=== PATIENT | male | born 1960 | race Caucasian/White ===

== ENCOUNTER → 2017-02-08 | Outpatient (CLI) | payer BC ==
[2017-02-08 09:39] LABS: HEMATOCRIT 43.3 % (42-52); MEAN CELL VOLUME 90.2 fL (80-100); MEAN CORPUSCULAR HEMOGLOBIN 31.7 pg (25-34); MEAN CORPUSCULAR HGB CONC 35.1 g/dl (32-36); MEAN PLATELET VOLUME 10.4 fL (7.4-10.4); PLATELET COUNT 238 K/uL (130-400); WHITE BLOOD COUNT 7.33 K/uL (4.8-10.8)
[2017-02-08 09:56] LABS: ALT/SGPT 72 U/L (12-78); BLOOD UREA NITROGEN 25 mg/dl (7-18); BUN/CREATININE RATIO 20.9 (10-20); CALCIUM 8.8 mg/dl (8.5-10.1); CARBON DIOXIDE 27 mmol/L (21-32); CHLORIDE 105 mmol/L (98-107); CHOLESTEROL 181 mg/dl (0-200); GLUCOSE 81 mg/dl (70-99); SODIUM 140 mmol/L (136-145); TRIGLYCERIDES 173 mg/dl (0-150); VERY LOW DENSITY LIPOPROT CALC 35 mg/dl
[2017-02-08 10:03] LABS: ALKALINE PHOSPHATASE 80 U/L (45-117); AST/SGOT 45 U/L (15-37); CHOLESTEROL/HDL RATIO 4.2; HDL CHOLESTEROL 43 mg/dl; LDL CHOLESTEROL CALCULATED 103 mg/dl
[2017-02-08 11:07] LABS: ESTIMATED AVERAGE GLUCOSE 108 mg/dl; HA1C FLAG Normal (Normal)
--- NOTE | 2017-02-15 09:02 | CODING QUERY MEDICAL NECESSITY ---
CQSUPPORTING DIAGNOSIS NEEDED A supporting diagnosis is required for the test/procedure performed on this patient in order for us to be reimbursed by the patient's insurance. Please provide a supporting diagnosis for the following test/procedure listed below next to the test name along with your signature. *If there is no additional diagnosis for this patient that would support the following test/procedure please document that below next to the test/procedure. Test(s)/Procedure(s) that require a supporting diagnosis: DOS 02/08/17 PROSTATE SPECIFIC ANTIGEN CBC TEST Provider Signature: Date: Thank you Blanche Loyd [facility] Information Management Once completed, please kindly fax back to [phone] For questions please call [phone]
== END | disposition home or self-care (01) ==
LOC: C.LAB1850 07:39
PROVIDERS: ATTEND Family Medicine
DX: R73.09 Other abnormal glucose (principal); N40.0 Benign prostatic hyperplasia without lower urinary tract symptoms; K76.9 Liver disease, unspecified

== ENCOUNTER → 2017-02-15 | Outpatient (CLI) | payer BC ==
--- NOTE | 2017-02-15 10:40 | DIAGNOSTIC IMAGING REPORT ---
(LIVER) ABDOMEN LIMITED CLINICAL HISTORY: 56 years-old Male presenting with HIGH LFT. TECHNIQUE: Real-time grayscale and limited color Doppler ultrasound imaging of the abdomen limited to the right upper quadrant was performed. COMPARISON: None. FINDINGS: Pancreas: Visualized portions of the pancreatic head and body normal. Liver: Mildly hyperechogenic parenchyma, although the right hemidiaphragm remains visible, likely indicating mild steatosis. The liver measures 15.5 cm in maximal sagittal dimension. No sonographic evidence of hepatic mass. Main portal vein patent with normal directional flow. Biliary: No intrahepatic biliary ductal dilatation. Common bile duct measures up to 2 mm in diameter. Gallbladder: No evidence of gallstones, gallbladder wall thickening, gallbladder distention, or pericholecystic fluid or inflammatory change. Right kidney: Normal in appearance and size, measuring 10.4 cm. No hydronephrosis. Ascites: None. IMPRESSION: No evidence of cholelithiasis or biliary ductal dilatation. Suggestion of hepatic steatosis. Electronically signed by: Isai Rubin M.D. 02/15/2017 10:38 AM Dictated Date/Time: 02/15/2017 10:37 AM
--- NOTE | 2017-02-26 07:20 | CODING QUERY NO DIAGNOSIS ---
TREATMENT RENDERED WITHOUT A DIAGNOSIS Dr. Freitas, To promote full compliance with coding requirements relating to patient care, physician participation is requested in all cases of song plugger uncertainty. Please assist us with providing a diagnosis/symptom for the test(s) below: A diagnosis/symptom was not documented on your Order. A valid diagnosis/symptom is required to bill all insurances. Please remember that we are unable to code a diagnosis of rule out, probable, possible, questionable, or suspected. Tests that require a diagnosis: * (LIVER) ABDOMEN LIMITED DIAGNOSIS: DATE OF SERVICE: 02/15/17 CANNOT USE ARROWS Provider Signature: Date: Thank you Morgan [facility] Information Management Once completed, please kindly fax back to [phone] For questions please call [phone]
== END | disposition home or self-care (01) ==
LOC: C.ULTR 09:12
PROVIDERS: ATTEND Family Medicine
DX: Z01.89 Encounter for other specified special examinations (principal)

== ENCOUNTER → 2017-02-15 | Outpatient (CLI) | payer BC ==
[2017-02-15 14:04] LABS: PROSTATE SPECIFIC ANTIGEN 6.53 ng/ml (0.000-4.000)
--- NOTE | 2017-02-26 07:30 | CODING QUERY NO DIAGNOSIS ---
TREATMENT RENDERED WITHOUT A DIAGNOSIS Dr. Freitas, To promote full compliance with coding requirements relating to patient care, physician participation is requested in all cases of ic engineer uncertainty. Please assist us with providing a diagnosis/symptom for the test(s) below: A diagnosis/symptom was not documented on your Order. A valid diagnosis/symptom is required to bill all insurances. Please remember that we are unable to code a diagnosis of rule out, probable, possible, questionable, or suspected. Tests that require a diagnosis: * IRON DIAGNOSIS: * LIVER PROFILE DIAGNOSIS: * TOTAL IRON BINDING CAP TIBC DIAGNOSIS: * HBS ANTIGEN DIAGNOSIS: * PSA; TOTAL DIAGNOSIS: * HEPATITIS C, IGG DIAGNOSIS: DATE OF SERVICE: 02/15/17 CANNOT USE ARROWS Provider Signature: Date: Thank you Morgan [facility] Information Management Once completed, please kindly fax back to [phone] For questions please call [phone]
== END | disposition home or self-care (01) ==
LOC: C.LAB1850 10:46
PROVIDERS: ATTEND Family Medicine
DX: Z01.89 Encounter for other specified special examinations (principal)

== ENCOUNTER → 2017-04-06 | Outpatient (CLI) | payer BC | END | disposition home or self-care (01) | LOC: C.PATH 17:36 | PROVIDERS: ATTEND Urology | DX: R97.20 Elevated prostate specific antigen [PSA] (principal); C61 Malignant neoplasm of prostate ==

== ENCOUNTER → 2017-09-22 | Outpatient (CLI) | payer OTHER | END | disposition home or self-care (01) | LOC: C.LAB1850 12:24 | PROVIDERS: ATTEND Urology | DX: N40.1 Benign prostatic hyperplasia with lower urinary tract symptoms (principal) ==